=== PATIENT | male | born 1960 | race Two or more races ===

== ENCOUNTER 2020-10-28 13:12 | Outpatient (CLI) | payer OTHER | END 2020-10-28 13:20 | disposition home or self-care (01) | LOC: RAD 13:12 → MRI 13:15 → RAD 13:20 | PROVIDERS: ATTEND Orthopaedic Surgery | DX: M25.561 Pain in right knee (principal); M25.562 Pain in left knee | CPT/HCPCS: 73721 ==

== ENCOUNTER 2023-08-05 16:46 | Inpatient (IN) | payer OTHER ==
[~2023-08-05] VITALS: Ht 188 cm; Wt 201.8 kg
[2023-08-05 18:18] LABS: HEMATOCRIT 37.3 % (39.0-48.0); MEAN CELL VOLUME 84.8 fL (80.0-100.00); MEAN CORPUSCULAR HEMOGLOBIN 29.5 pg (27.00-32.0); MEAN CORPUSCULAR HGB CONC 34.8 g/dl (32.0-36.0); PLATELET COUNT 302 K/uL (150-450)
[2023-08-05 18:23] LABS: ERYTHROCYTE SEDIMENTATION RATE 76 mm/hr
[2023-08-05 18:47] LABS: ALBUMIN 2.6 gm/dL (3.4-5.0); BILIRUBIN TOTAL 0.26 mg/dL (0.3-1.2); CALCIUM 9.3 mg/dL (8.5-10.1); CREATININE SERUM 0.87 mg/dL (0.70-1.30); GFR 88.91; GLOBULINA 5.3 G/DL (2.4-3.5); POTASSIUM 3.73 mEq/L (3.5-5.1); TOTAL PROTEIN 7.9 gm/dL (6.4-8.2)
[2023-08-05 18:55] LABS: C-REACTIVE PROTEIN 21.9 MG/DL (0.00-0.29)
[2023-08-05 21:46] LABS: INR 1.1; PARTIAL THROMBOPLASTIN TIME 30.3 SECONDS (22.0-34.0); PROTHROMBIN TIME 11.5 SECONDS (9.0-11.5)
[2023-08-05 22:02] LABS: PH,URINE 6.5 (5.0-8.0); URINE APPEARANCE Clear; URINE BILIRRUBIN Negative (NEGATIVE); URINE BLOOD Negative; URINE COLOR Yellow; URINE LEUKOCYTE Negative; URINE NITRATE Negative; URINE PROTEIN Negative (NEGATIVE)
[2023-08-05 22:04] LABS: URINE BACTERIA 6.2 uL (0.0-1933); URINE EPITHELIAL CELLS 4.3 uL (0.0-38.8); URINE RBC 3.1 uL (0.0-20.8); URINE WBC 9.2 uL (0.0-23.2)
[2023-08-05 22:13] LABS: URINE GLUCOSE >=1000 MG/DL (NEGATIVE)
[2023-08-06 07:22] LABS: CHOL HDL RATIO 7.9 (0-5.0); TSH 0.755 uIU/mL (0.358-3.74)
[2023-08-08 08:24] LABS: HEMATOCRIT 36.5 % (39.0-48.0); HEMOGLOBIN 12.5 g/dL (13-16.00); MEAN CELL VOLUME 85.9 fL (80.0-100.00); MEAN CORPUSCULAR HEMOGLOBIN 29.4 pg (27.00-32.0); MEAN CORPUSCULAR HGB CONC 34.2 g/dl (32.0-36.0); PLATELET COUNT 370 K/uL (150-450); RED BLOOD COUNT 4.25 M/uL (4.00-6.00); RED CELL DISTRIBUTION WIDTH 13.8 % (11.5-14.5)
[2023-08-08 08:41] LABS: ALBUMIN 2.6 gm/dL (3.4-5.0); BILIRUBIN TOTAL 0.53 mg/dL (0.3-1.2); CALCIUM 8.6 mg/dL (8.5-10.1); CREATININE SERUM 0.66 mg/dL (0.70-1.30); GFR 122.3; GLOBULINA 4.2 G/DL (2.4-3.5); POTASSIUM 3.79 mEq/L (3.5-5.1); TOTAL PROTEIN 6.8 gm/dL (6.4-8.2)
[2023-08-10 08:18] LABS: HEMATOCRIT 33.1 % (39.0-48.0); HEMOGLOBIN 11.7 g/dL (13-16.00); MEAN CELL VOLUME 84.5 fL (80.0-100.00); MEAN CORPUSCULAR HEMOGLOBIN 29.8 pg (27.00-32.0); MEAN CORPUSCULAR HGB CONC 35.2 g/dl (32.0-36.0); PLATELET COUNT 378 K/uL (150-450); RED BLOOD COUNT 3.92 M/uL (4.00-6.00); RED CELL DISTRIBUTION WIDTH 13.7 % (11.5-14.5)
[2023-08-10 09:09] LABS: ALBUMIN 2.2 gm/dL (3.4-5.0); BILIRUBIN TOTAL 0.3 mg/dL (0.3-1.2); CALCIUM 8.2 mg/dL (8.5-10.1); CREATININE SERUM 0.58 mg/dL (0.70-1.30); GFR 141.96; GLOBULINA 3.9 G/DL (2.4-3.5); TOTAL PROTEIN 6.1 gm/dL (6.4-8.2)
[2023-08-13 06:19] LABS: HEMATOCRIT 35.2 % (39.0-48.0); HEMOGLOBIN 12.1 g/dL (13-16.00); MEAN CELL VOLUME 85.9 fL (80.0-100.00); MEAN CORPUSCULAR HEMOGLOBIN 29.5 pg (27.00-32.0); MEAN CORPUSCULAR HGB CONC 34.3 g/dl (32.0-36.0); PLATELET COUNT 472 K/uL (150-450); RED CELL DISTRIBUTION WIDTH 13.9 % (11.5-14.5)
[2023-08-13 06:56] LABS: ERYTHROCYTE SEDIMENTATION RATE 68 mm/hr
[2023-08-13 07:07] LABS: ALBUMIN 2.4 gm/dL (3.4-5.0); BILIRUBIN TOTAL 0.29 mg/dL (0.3-1.2); CALCIUM 9.1 mg/dL (8.5-10.1); CREATININE SERUM 0.68 mg/dL (0.70-1.30); GFR 118.16; GLOBULINA 4.4 G/DL (2.4-3.5); POTASSIUM 4.26 mEq/L (3.5-5.1); TOTAL PROTEIN 6.8 gm/dL (6.4-8.2)
[2023-08-13 07:21] LABS: C-REACTIVE PROTEIN 3.3 MG/DL (0.00-0.29)
== END 2023-08-14 21:18 | DRG 580 ==
LOC: ER 16:46 → SURG 22:08 → SEC-K 22:08 → MEDI 08-06 01:08 → SEC-K 08-06 02:32 → SURG 08-06 02:36 → MEDI 08-14 14:15
PROVIDERS: General Practice; ADMIT Specialist; ATTEND Specialist
PROC: BQ3FZZZ Magnetic Resonance Imaging (MRI) of Left Lower Leg (ICD-10-PCS; principal; 2023-08-06)
PROC: B44HZZZ Ultrasonography of Bilateral Lower Extremity Arteries (ICD-10-PCS; 2023-08-06)
PROC: B54DZZZ Ultrasonography of Bilateral Lower Extremity Veins (ICD-10-PCS; 2023-08-06)
PROC: 0JBR3ZZ Excision of Left Foot Subcutaneous Tissue and Fascia, Percutaneous Approach (ICD-10-PCS; 2023-08-14)
DX: L97.523 Non-pressure chronic ulcer of other part of left foot with necrosis of muscle (principal); E11.52 Type 2 diabetes mellitus with diabetic peripheral angiopathy with gangrene; I96 Gangrene, not elsewhere classified; M86.8X7 Other osteomyelitis, ankle and foot; L03.116 Cellulitis of left lower limb; E11.621 Type 2 diabetes mellitus with foot ulcer; E11.65 Type 2 diabetes mellitus with hyperglycemia; B95.61 Methicillin susceptible Staphylococcus aureus infection as the cause of diseases classified elsewhere; L08.89 Other specified local infections of the skin and subcutaneous tissue; I87.2 Venous insufficiency (chronic) (peripheral); Z85.038 Personal history of other malignant neoplasm of large intestine; Z79.4 Long term (current) use of insulin
CPT/HCPCS: 73725

== ENCOUNTER 2024-05-08 05:39 | Day surgery (SDC) | payer OTHER ==
[~2024-05-08 05:39] MED LIST: CLINDAMYCIN PHOSPHATE 150 MG/ML (900mg) IV SCH; MOUNJARO2.5 MG/0.5
[2024-05-08] MEDS ORDERED: CLINDAMYCIN PHOSPHATE 150 MG/ML (900mg) ONE (08:00)
[2024-05-08] MEDS ORDERED: LIDOCAINE HCL 1%/EPINEPHRINE 20ML VIAL IJ ONE (09:41)
[2024-05-08] MEDS ORDERED: BUPIVACAINE HCL/Mpf 0.5% 10ML VIAL ONE (09:41)
[2024-05-08] MEDS ORDERED: TRAMADOL HCL50 MG PO (12:14)
== END 2024-05-08 12:55 | disposition home or self-care (01) ==
LOC: CIR.AMB 05:39
PROVIDERS: ATTEND Surgery
DX: T82.594A Other mechanical complication of infusion catheter, initial encounter (principal); Z85.038 Personal history of other malignant neoplasm of large intestine; Z90.49 Acquired absence of other specified parts of digestive tract; Z88.0 Allergy status to penicillin

== ENCOUNTER 2024-06-24 18:53 | Inpatient (IN) | payer OTHER ==
[~2024-06-24] VITALS: Ht 188 cm; Wt 99.8 kg
[~2024-06-24 18:53] MED LIST changes: -CLINDAMYCIN PHOSPHATE 150 MG/ML (900mg) IV SCH; +TRAMADOL HCL50 MG PO
[2024-06-24] MEDS ORDERED: VANCOMYCIN HCL 1,000 MG VIAL IV ONE (20:00)
[2024-06-24] MEDS ORDERED: 0.9 % SODIUM CHLORIDE 1,000 ML IV SCH ×2 (20:00→21:15)
[2024-06-24] MEDS ORDERED: MEROPENEM 1,000 MG VIAL IV ONE (20:00)
[2024-06-24 20:35] LABS: HEMATOCRIT 35.1 % (39.0-48.0); HEMOGLOBIN 12.3 g/dL (13-16.00); MEAN CELL VOLUME 85.1 fL (80.0-100.00); MEAN CORPUSCULAR HEMOGLOBIN 29.7 pg (27.00-32.0); MEAN CORPUSCULAR HGB CONC 34.9 g/dl (32.0-36.0); PLATELET COUNT 282 K/uL (150-450); RED BLOOD COUNT 4.13 M/uL (4.00-6.00); RED CELL DISTRIBUTION WIDTH 14.3 % (11.5-14.5)
[2024-06-24 20:36] LABS: ERYTHROCYTE SEDIMENTATION RATE 25 mm/hr
[2024-06-24 20:54] LABS: INR 1.1; PARTIAL THROMBOPLASTIN TIME 26.2 SECONDS (22.0-34.0); PROTHROMBIN TIME 11.9 SECONDS (9.0-11.5)
[2024-06-24 21:04] LABS: ALBUMIN 3.7 gm/dL (3.4-5.0); BILIRUBIN TOTAL 0.36 mg/dL (0.3-1.2); C-REACTIVE PROTEIN 0.95 MG/DL (0.00-0.29); CALCIUM 9.1 mg/dL (8.5-10.1); CREATININE SERUM 0.91 mg/dL (0.70-1.30); GFR 84.15; GLOBULINA 3.9 G/DL (2.4-3.5); POTASSIUM 3.92 mEq/L (3.5-5.1); TOTAL PROTEIN 7.6 gm/dL (6.4-8.2)
[2024-06-24] MEDS ORDERED: ACETAMINOPHEN 500 MG GEL..CAP PO PRN (21:15)
[2024-06-24 22:12] LABS: URINE APPEARANCE Clear; URINE BILIRRUBIN Negative (NEGATIVE); URINE BLOOD Negative; URINE COLOR Yellow; URINE GLUCOSE Negative (NEGATIVE); URINE KETONE Negative (NEGATIVE); URINE LEUKOCYTE Negative; URINE NITRATE Negative; URINE PROTEIN Negative (NEGATIVE)
[2024-06-24 22:17] LABS: URINE BACTERIA 2.5 uL (0.0-1933); URINE EPITHELIAL CELLS 0.6 uL (0.0-38.8); URINE RBC 0.7 uL (0.0-20.8); URINE WBC 1.2 uL (0.0-23.2)
[2024-06-25 01:22] VITALS: BP 125/78; O2SAT 97
[2024-06-25] MEDS ORDERED: MEROPENEM 500 MG/VIAL VIAL IV SCH (02:00)
[2024-06-25 08:29] VITALS: BP 128/70; O2SAT 97
[2024-06-25] MEDS ORDERED: FAMOTIDINE/PF 20 MG in 0.9 % SODIUM CHLORIDE 8 ML IV PUSH SCH (09:00)
[2024-06-25] MEDS ORDERED: VANCOMYCIN HCL 1,000 MG VIAL IV SCH (09:00)
[2024-06-25] MEDS ORDERED: ENOXAPARIN SODIUM 40 MG/0.4 ML SYRINGE SUBCUTANEO SCH (09:00)
[2024-06-25] MEDS ORDERED: LACTOBACILLUS ACIDOPHILUS 1 CAP CAP PO SCH (09:00)
[2024-06-25] MEDS ORDERED: SODIUM HYPOCHLORITE 1OZ TOP SCH (09:00)
[2024-06-25 14:55] LABS: ALBUMIN 3.4 gm/dL (3.4-5.0); BILIRUBIN TOTAL 0.4 mg/dL (0.3-1.2); CALCIUM 8.7 mg/dL (8.5-10.1); CREATININE SERUM 0.76 mg/dL (0.70-1.30); GFR 103.59; GLOBULINA 3.9 G/DL (2.4-3.5); POTASSIUM 3.91 mEq/L (3.5-5.1); TOTAL PROTEIN 7.3 gm/dL (6.4-8.2)
[2024-06-25 17:19] VITALS: BP 134/81; O2SAT 97
[2024-06-25] MEDS ORDERED: VANCOMYCIN HCL 5 MG/ML REDILUIDO IV SCH (21:00)
[2024-06-26 00:45] VITALS: BP 120/79; O2SAT 96
[2024-06-26 06:50] LABS: HEMATOCRIT 33.7 % (39.0-48.0); HEMOGLOBIN 11.9 g/dL (13-16.00); MEAN CELL VOLUME 85.6 fL (80.0-100.00); MEAN CORPUSCULAR HEMOGLOBIN 30.3 pg (27.00-32.0); MEAN CORPUSCULAR HGB CONC 35.4 g/dl (32.0-36.0); PLATELET COUNT 246 K/uL (150-450); RED BLOOD COUNT 3.93 M/uL (4.00-6.00); RED CELL DISTRIBUTION WIDTH 13.4 % (11.5-14.5)
[2024-06-26 07:26] LABS: PHOSPHOROUS 2.8 mg/dL (2.5-4.9)
[2024-06-26 07:27] LABS: C-REACTIVE PROTEIN < 0.29 MG/DL (0.00-0.29)
[2024-06-26 08:29] VITALS: BP 130/70; O2SAT 98
[2024-06-26 17:06] VITALS: BP 150/84; O2SAT 95
[2024-06-27] VITALS: BP 130/80; O2SAT 96
[2024-06-27 08:58] VITALS: BP 122/76; O2SAT 96
[2024-06-27 16:37] VITALS: BP 156/78; O2SAT 97
[2024-06-28 01:00] VITALS: BP 124/75; O2SAT 97
[2024-06-28 08:00] VITALS: BP 136/84; O2SAT 97
[2024-06-28 16:56] VITALS: BP 122/82; O2SAT 97
[2024-06-29 01:26] VITALS: BP 113/69; O2SAT 98
[2024-06-29 08:25] VITALS: BP 124/77; O2SAT 98
[2024-06-29 15:45] VITALS: BP 123/73; O2SAT 97
[2024-06-29] MEDS ORDERED: MORGIDOX100 MG PO (17:51)
[2024-06-29] MEDS ORDERED: INTESTINEX680 M1 PO (17:51)
== END 2024-06-29 18:10 | disposition home or self-care (01) | DRG 638 ==
LOC: ER 18:53 → MEDI 21:38
PROVIDERS: General Practice; Internal Medicine Infectious Disease; ADMIT Internal Medicine; ATTEND Internal Medicine
PROC: B44HZZZ Ultrasonography of Bilateral Lower Extremity Arteries (ICD-10-PCS; principal; 2024-06-25)
PROC: BQ3FZZZ Magnetic Resonance Imaging (MRI) of Left Lower Leg (ICD-10-PCS; 2024-06-25)
PROC: 0JBR3ZZ Excision of Left Foot Subcutaneous Tissue and Fascia, Percutaneous Approach (ICD-10-PCS; 2024-06-25)
DX: E11.621 Type 2 diabetes mellitus with foot ulcer (principal); L97.528 Non-pressure chronic ulcer of other part of left foot with other specified severity; L08.89 Other specified local infections of the skin and subcutaneous tissue
CPT/HCPCS: 73725